=== PATIENT | male | born 1940 | race Caucasian/White ===

== ENCOUNTER 2016-10-22 02:03 | Inpatient (IN) | payer OTHER ==
[~2016-10-22] VITALS: Ht 165.1 cm; Wt 70.2 kg
[2016-10-22 03:30] VITALS: BP 181/96; PULSE 94; RESP 19
[2016-10-22] MEDS ORDERED: ACET325T45 PO (04:00)
[2016-10-22] MEDS ORDERED: IBUP200C11 PO (04:00)
[2016-10-22 04:06] VITALS: Ht 165.1 cm; Wt 70.2 kg
[2016-10-22] MEDS ORDERED: ONDANSETRON 4 MG INJ IV PRN (05:00)
[2016-10-22] MEDS: morphine 4 MG/ML VIAL IV PRN ×2 (05:07→12:39)
[2016-10-22 05:52] LABS: BASOPHIL # 0.1 10^3/ul (0.0-0.1); BASOPHILS % 0.8 % (0.0-2.0); EOSINOPHILS # 0.3 10^3/ul (0.0-0.5); EOSINOPHILS % 3.9 % (0.0-7.0); HEMATOCRIT 32.1 % (42.0-52.0); HEMOGLOBIN 10.8 g/dl (14.0-18.0); LYMPHOCYTES # 2.1 10^3/ul (0.8-2.9); LYMPHOCYTES % 24.2 % (15.0-51.0); MEAN CORPUSCULAR HGB CONC 33.6 g/dl (32.0-37.0); MEAN CORPUSCULAR VOLUME 92.2 fl (82.0-101.0); MEAN PLATELET VOLUME 10.4 fl (7.4-10.4); MONOCYTE # 0.9 10^3/ul (0.3-0.9); MONOCYTES % 10.8 % (0.0-11.0); NEUTROPHILS % 57.4 % (39.0-77.0); NUCLEATED RED BLOOD CELLS # 0.1 10^3/ul (0.0-0.0); NUCLEATED RED BLOOD CELLS% 0.6 /100WBC (0.0-0.0); PLATELET COUNT 222 10^3/UL (140-415); RED BLOOD COUNT 3.48 10^6/ul (4.70-6.10); RED CELL DISTRIBUTION WIDTH 14.2 % (11.5-14.5); WHITE BLOOD COUNT 8.5 10^3/ul (4.8-10.8)
[2016-10-22] MEDS ORDERED: hydrALAzine 20 MG INJ IV PRN (06:00)
[2016-10-22 06:03] LABS: ALBUMIN 3.1 g/dl (3.3-4.9); ALBUMIN/GLOBULIN RATIO 0.88; BILIRUBIN,INDIRECT 1.3 mg/dl (0-1.1); BILIRUBIN,TOTAL 1.3 mg/dl (0.2-1.3); CALCIUM 8.6 mg/dl (8.4-10.2); CREATININE 0.9 mg/dl (0.61-1.24); POTASSIUM 3.2 mmol/L (3.5-5.1); TOTAL PROTEIN 6.6 g/dl (6.1-8.1)
--- NOTE | 2016-10-22 06:10 | HP ---
Date/Time of Note Date/Time of Note DATE: 10/22/16 TIME: 06:01 Assessment/Plan VTE Prophylaxis VTE Prophylaxis Intervention: SCD's Lines/Catheters IV Catheter Type (from Nrsg): Saline Lock Assessment/Plan Assessment/Plan 1. Left femur fracture, status post fall -Pain management -Orthopedic consult -Physical therapy when cleared by Ortho 2. Elevated blood pressure -No history of hypertension. This is probably pain induced. will manage his pain and start antihypertensives as needed HPI/ROS Admit Date/Time Admit Date/Time Oct 22, 2016 at 03:24 Hx of Present Illness This is a 76-year-old male with no known past medical history who initially presented at [facility] complaining of left hip pain status post fall. He fell out of the bed 4 days ago during sleep and was found on the floor by his son. He has bruising over the left thigh, and a well-healed lesion over the left elbow and the right knee. X-ray at [facility] showed fracture of the head of the left femur. Patient was transferred to [facility] because of insurance reasons. Patient stated that he is still having pain in the left hip area and unable to bear weight as a result of that. . PMH/Family/Social Past Medical History Medical History: no pertinent history Past Surgical History Past Surgical Hx: no surgical history Social History Alcohol Use: none Smoking Status: Never smoker Drug Use: none Exam/Review of Systems Vital Signs Vitals Vital Signs Date Time Temp Pulse Resp B/P Pulse Ox O2 Delivery O2 Flow Rate FiO2 10/22/16 03:30 98.4 94 19 181/96 92 Room Air Exam Constitutional: alert, oriented, well developed Head: atraumatic, normocephalic Eyes: EOMI, PERRL Neck: non-tender, supple Respiratory: clear to auscultation, normal air movement Cardiovascular: nl pulses, regular rate and rhythm Gastrointestinal: non-tender, soft Extremities: other (Left hip pain, left thigh bruising and tenderness. Well- healed lesion over the left elbow and the right knee) Labs Result Diagram: 10/22/16 0456 Medications Medications Current Medications Morphine Sulfate (morphine) 3 mg Q4H PRN IV PAIN Last administered on t 05:07; Admin Dose 3 MG; Start 10/22/16 at 05:00 Ondansetron HCl (Zofran Inj) 4 mg Q6H PRN IV NAUSEA AND/OR VOMITING; Start at 05:00 Acetaminophen (Tylenol Tab) 650 mg Q6H PRN PO PAIN AND OR ELEVATED TEMP; Start 10/22/16 at 05:00 Amlodipine Besylate (Norvasc) 5 mg DAILY PO ; Start 10/22/16 at 09:00 Hydralazine HCl (Apresoline) 10 mg Q4H PRN IV SBP > 160; Start 10/22/16 at 06: 00 ANNIE SAENZ MD Oct 22, 2016 06:10
[2016-10-22 06:20] VITALS: BP 167/85
[2016-10-22] MEDS: AMLODIPINE 5 MG TAB PO SCH (09:00)
[2016-10-22 12:11] VITALS: BP 132/61; PULSE 93; RESP 20
[2016-10-22] MEDS ORDERED: POTASSIUM CHLORIDE (SR) 20 MEQ TAB PO STA (13:20)
--- NOTE | 2016-10-22 14:15 | QN ---
Documentation Comment Left message to Dr. García cell phone regarding consult as well as called office and made aware of the consult. Pending eval. Case discussed with . ROSANNA LOJA NP Oct 22, 2016 14:15
--- NOTE | 2016-10-22 14:50 | RADRPT ---
PROCEDURE: XR Right Hip. CLINICAL INDICATION: Trauma due to a fall. Right hip pain. TECHNIQUE: Single frontal view. COMPARISON: No prior studies are available for comparison. FINDINGS: There is no fracture or dislocation. The soft tissues are normal. Articular surfaces are intact. There is no lytic or blastic lesion. There is no radiopaque foreign body. IMPRESSION: 1. Normal image of the right hip. 2. This is a limited study as only a single view was obtained. RPTAT: QQ .Bismark Valdes MD, MD Date Time Electronically viewed and signed by .Bismark Valdes MD, on 10/22/2016 14:50 .R/
--- NOTE | 2016-10-22 14:51 | RADRPT ---
PROCEDURE: XR Right Shoulder. CLINICAL INDICATION: Trauma due to a fall. Right shoulder pain. TECHNIQUE: 3 views. Frontal internal rotation and frontal external rotation. Scapular Y-view. COMPARISON: No prior study is available for comparison. FINDINGS: There is no fracture or dislocation. The soft tissues are normal. Articular surfaces are intact. There is no lytic or blastic lesion. There is no radiopaque foreign body. IMPRESSION: 1. Normal images of the right shoulder. RPTAT: QQ .Bismark Valdes MD, MD Date Time Electronically viewed and signed by .Bismark Valdes MD, on 10/22/2016 14:50 .R/
[2016-10-22 19:34] VITALS: BP 138/70; RESP 22
[2016-10-23 02:00] VITALS: BP 127/79; RESP 22
--- NOTE | 2016-10-23 03:38 | CONS ---
DATE OF ADMISSION: 10/22/2016 DATE OF CONSULTATION: 10/22/2016 HISTORY OF PRESENT ILLNESS: Patient is a 76-year-old male, who has been in good health, who was transferred in on 22 October 2016 from [facility] because of the insurance arrangement. According to the family members, he fell out of his bed about 4 days ago, developing painful limit of motion involving his left hip. He was taken to [facility], and evaluation at the [facility] revealed the presence of fracture involving his left hip. PAST MEDICAL HISTORY: He has been relatively in good health. PHYSICAL EXAMINATION: My examination revealed a 76-year-old male with painful swelling and tenderness around the left hip. There was a shortening and abnormal external rotation of the left lower extremity. There are no signs of neurovascular compromise involving the left lower extremity. Range of motion of the left hip was not tested because of the obvious pain. RADIOLOGY: X-rays of the left hip revealed an intertrochanteric and subtrochanteric fracture of the left hip. DIAGNOSTIC IMPRESSION: Intertrochanteric and subtrochanteric fracture of the left hip. TREATMENT PLAN: To surgery for open reduction and internal fixation as soon as he can be medically cleared for surgery. Dictated By: In Sera García MD /marya/ashley /Document#: [id number]
[2016-10-23 05:47] LABS: BASOPHIL # 0.1 10^3/ul (0.0-0.1); BASOPHILS % 0.6 % (0.0-2.0); EOSINOPHILS # 0.2 10^3/ul (0.0-0.5); EOSINOPHILS % 2.4 % (0.0-7.0); HEMATOCRIT 31.2 % (42.0-52.0); HEMOGLOBIN 10.4 g/dl (14.0-18.0); LYMPHOCYTES # 1.4 10^3/ul (0.8-2.9); LYMPHOCYTES % 16.1 % (15.0-51.0); MEAN CORPUSCULAR HEMOGLOBIN 30.7 pg (29.0-33.0); MEAN CORPUSCULAR HGB CONC 33.3 g/dl (32.0-37.0); MEAN PLATELET VOLUME 10.1 fl (7.4-10.4); MONOCYTE # 1.1 10^3/ul (0.3-0.9); MONOCYTES % 12.5 % (0.0-11.0); NEUTROPHILS % 65.6 % (39.0-77.0); NUCLEATED RED BLOOD CELLS # 0.1 10^3/ul (0.0-0.0); NUCLEATED RED BLOOD CELLS% 0.6 /100WBC (0.0-0.0); PLATELET COUNT 249 10^3/UL (140-415); RED BLOOD COUNT 3.39 10^6/ul (4.70-6.10); RED CELL DISTRIBUTION WIDTH 14.1 % (11.5-14.5); WHITE BLOOD COUNT 8.9 10^3/ul (4.8-10.8)
[2016-10-23] MEDS: morphine 4 MG/ML VIAL IV PRN ×5 (05:58→21:12)
[2016-10-23 06:24] LABS: CALCIUM 8.6 mg/dl (8.4-10.2); CHOL/HDL RATIO 3.9 RATIO; CREATININE 0.94 mg/dl (0.61-1.24); POTASSIUM 4.1 mmol/L (3.5-5.1)
[2016-10-23 07:42] LABS: THYROID STIMULATING HORMONE 1.61 MIU/L (0.465-4.680)
[2016-10-23 08:00] VITALS: BP 134/95; RESP 18
[2016-10-23] MEDS: AMLODIPINE 5 MG TAB PO SCH (08:38)
--- NOTE | 2016-10-23 11:33 | PN ---
Date/Time of Note Date/Time of Note DATE: 10/23/16 TIME: 11:23 Assessment/Plan VTE Prophylaxis VTE Prophylaxis Intervention: SCD's Lines/Catheters IV Catheter Type (from Nrsg): Saline Lock Assessment/Plan Chief Complaint/Hosp Course 1.Mechanical fall with left hip fracture -Ortho eval appreciated-Recommended ORIF -Continue pain control and immobilization of affected part 2.Anemia,likley chronic. -HH stable -Monitor 3.HTN,Likely pain induced. Resolved. -Monitor. 4.Hypokalemia.Resolved -Monitor. PLAN: For ORIF left hip. F/u ortho recs postoperatively Given patient's medical condition, patient is at intermediate risk for any untoward medical events for surgery. However, benefit likely outweigh risks and recommended to have surgical intervention. Will also obtain a 12 lead EKG and chest Xray prior to surgical intervention. Case discussed with Problems: Subjective 24 Hr Interval Summary Free Text/Dictation Having pain on left hip. Had ortho eval. Recommended ORIF Exam/Review of Systems Vital Signs Vitals Vital Signs Date Time Temp Pulse Resp B/P Pulse Ox O2 Delivery O2 Flow Rate FiO2 10/23/16 08:00 98.8 77 18 134/95 98 10/22/16 12:11 Room Air Intake and Output 10/22/16 10/22/16 10/23/16 15:00 23:00 07:00 Intake Total 500 ml 100 ml Output Total 400 ml 100 ml Balance 100 ml 0 ml Results Result Diagram: 10/23/16 0514 10/23/16 0515 Results 24 hrs Laboratory Tests Test 10/23/16 05:14 10/23/16 05:15 White Blood Count 8.9 Red Blood Count 3.39 L Hemoglobin 10.4 L Hematocrit 31.2 L Mean Corpuscular Volume 92.0 Mean Corpuscular Hemoglobin 30.7 Mean Corpuscular Hemoglobin Concent 33.3 Red Cell Distribution Width 14.1 Platelet Count 249 Mean Platelet Volume 10.1 Neutrophils % 65.6 Lymphocytes % 16.1 Monocytes % 12.5 H Eosinophils % 2.4 Basophils % 0.6 Nucleated Red Blood Cells % 0.6 H Neutrophils # (Manual) 5.9 Lymphocytes # 1.4 Monocytes # 1.1 H Eosinophils # 0.2 Basophils # 0.1 Nucleated Red Blood Cells # 0.1 H Hemoglobin A1c 5.4 Sodium Level 137 Potassium Level 4.1 Chloride Level 103 Carbon Dioxide Level 27 Anion Gap 11 Blood Urea Nitrogen 21 H Creatinine 0.94 Glucose Level 98 Calcium Level 8.6 Magnesium Level 2.0 Triglycerides Level 112 Cholesterol Level 142 LDL Cholesterol, Calculated 84 HDL Cholesterol 36 Cholesterol/HDL Ratio 3.9 Thyroid Stimulating Hormone (TSH) 1.610 Medications Medications Current Medications Morphine Sulfate (morphine) 3 mg Q4H PRN IV PAIN Last administered on 10/23/16 09:15; Admin Dose 3 MG; Start 10/22/16 at 05:00 Ondansetron HCl (Zofran Inj) 4 mg Q6H PRN IV NAUSEA AND/OR VOMITING; Start at 05:00 Acetaminophen (Tylenol Tab) 650 mg Q6H PRN PO PAIN AND OR ELEVATED TEMP; Start 10/22/16 at 05:00 Amlodipine Besylate (Norvasc) 5 mg DAILY PO Last administered on 10/23/16 08:38 ; Admin Dose 5 MG; Start 10/22/16 at 09:00 Hydralazine HCl (Apresoline) 10 mg Q4H PRN IV SBP > 160 Last administered on 06:11; Admin Dose 10 MG; Start 10/22/16 at 06:00 ROSANNA LOJA NP Oct 23, 2016 11:33
[2016-10-23] MEDS: SOD CHLORIDE 0.9% 1,000 ML IV SCH (12:05)
--- NOTE | 2016-10-23 12:37 | RADRPT ---
PROCEDURE: XR Chest. CLINICAL INDICATION: Preoperative. Left hip fracture. TECHNIQUE: Single frontal view. COMPARISON: None. FINDINGS: There is mild atelectasis at the lung bases. The lungs are otherwise clear. The heart size is normal. There is calcification in the aorta consistent with atherosclerosis. There is no pleural effusion. There is no pneumothorax. IMPRESSION: 1. Mild atelectasis at the lung bases. 2. Atherosclerosis. 3. Otherwise normal chest x-ray. RPTAT: QQ .Bismark Valdes MD, MD Date Time Electronically viewed and signed by .Bismark Valdes MD, on 10/23/2016 12:37 .R/
[2016-10-23 14:00] VITALS: BP 137/76; RESP 18
--- NOTE | 2016-10-23 15:39 | RADRPT ---
Vent Rate: 83 bpm RR Interval: 0 msec OH Interval: 146 msec QRS Duration: 88 msec QT Interval: 372 msec QTC Interval: 437 msec P-R-T [place]: 55 - 21 - 47 degrees Normal sinus rhythm Normal ECG Electronically Signed By: Dmitriy Galan [id number]
[2016-10-23 19:43] VITALS: BP 125/65; PULSE 92; RESP 18
[2016-10-24] VITALS (32 sets, daily range): BP systolic 98–161; BP diastolic 58–86; PULSE 78–100; RESP 14–33
[2016-10-24 05:24] LABS: BASOPHILS % 0.3 % (0.0-2.0); EOSINOPHILS # 0.2 10^3/ul (0.0-0.5); EOSINOPHILS % 2.6 % (0.0-7.0); HEMATOCRIT 29.9 % (42.0-52.0); HEMOGLOBIN 9.9 g/dl (14.0-18.0); LYMPHOCYTES # 1.6 10^3/ul (0.8-2.9); LYMPHOCYTES % 18.8 % (15.0-51.0); MEAN CORPUSCULAR HEMOGLOBIN 30.4 pg (29.0-33.0); MEAN CORPUSCULAR HGB CONC 33.1 g/dl (32.0-37.0); MEAN CORPUSCULAR VOLUME 91.7 fl (82.0-101.0); MEAN PLATELET VOLUME 9.8 fl (7.4-10.4); MONOCYTE # 1.2 10^3/ul (0.3-0.9); MONOCYTES % 13.2 % (0.0-11.0); NEUTROPHILS % 61.6 % (39.0-77.0); NUCLEATED RED BLOOD CELLS% 0.3 /100WBC (0.0-0.0); PLATELET COUNT 263 10^3/UL (140-415); RED BLOOD COUNT 3.26 10^6/ul (4.70-6.10); RED CELL DISTRIBUTION WIDTH 14.2 % (11.5-14.5); WHITE BLOOD COUNT 8.7 10^3/ul (4.8-10.8)
[2016-10-24 05:43] LABS: CREATININE 0.89 mg/dl (0.61-1.24); POTASSIUM 3.6 mmol/L (3.5-5.1)
[2016-10-24] MEDS ORDERED: EPHEDrine SULFATE 50 MG/5 ML SYG ONE (07:00)
[2016-10-24] MEDS ORDERED: ROCURONIUM 50 MG INJ ONE (07:00)
[2016-10-24] MEDS ORDERED: CEFAZOLIN 1 GM INJ ONE (07:00)
[2016-10-24] MEDS: AMLODIPINE 5 MG TAB PO SCH (07:49)
[2016-10-24] MEDS: SOD CHLORIDE 0.9% 1,000 ML IV SCH ×2 (08:06→18:35)
--- NOTE | 2016-10-24 09:18 | PN ---
Date/Time of Note Date/Time of Note DATE: 10/24/16 TIME: 09:16 Assessment/Plan VTE Prophylaxis VTE Prophylaxis Intervention: SCD's Lines/Catheters IV Catheter Type (from Nrsg): Peripheral IV Assessment/Plan Problems: (1) Anemia Status: Chronic Comment: Will perform basic evaluation of this. At this time this is not a contraindication to proceeding with surgery. Qualifiers: Anemia type: unspecified type Qualified Code: D64.9 - Anemia, unspecified type (2) Fracture, subtrochanteric, left femur, closed Status: Acute Comment: As per orthopedic consultation recommendation for ORIF. No evidence of osteoporosis. Proceed with surgery as medically clear for the procedure. Debilitation after successful surgery Qualifiers: Encounter type: initial encounter Fracture alignment: nondisplaced Qualified Code: S72.25XA - Closed nondisplaced subtrochanteric fracture of left femur, initial encounter Subjective 24 Hr Interval Summary Free Text/Dictation Cus-Qnanjuh-[id number] male lying in bed. Exam/Review of Systems Vital Signs Vitals Vital Signs Date Time Temp Pulse Resp B/P Pulse Ox O2 Delivery O2 Flow Rate FiO2 10/24/16 07:45 98.2 68 18 138/68 97 10/23/16 19:43 Room Air Intake and Output 10/23/16 10/23/16 10/24/16 15:00 23:00 07:00 Intake Total 780 ml 1050 ml Output Total 600 ml 1200 ml Balance 180 ml -150 ml Exam Constitutional: alert Head: atraumatic, normocephalic Neck: non-tender, supple Respiratory: clear to auscultation, normal air movement Cardiovascular: nl pulses, regular rate and rhythm Gastrointestinal: nl liver, spleen, non-tender, soft Results Result Diagram: 10/24/16 0436 10/24/16 0436 Results 24 hrs Laboratory Tests Test 10/24/16 04:36 White Blood Count 8.7 Red Blood Count 3.26 L Hemoglobin 9.9 L Hematocrit 29.9 L Mean Corpuscular Volume 91.7 Mean Corpuscular Hemoglobin 30.4 Mean Corpuscular Hemoglobin Concent 33.1 Red Cell Distribution Width 14.2 Platelet Count 263 Mean Platelet Volume 9.8 Neutrophils % 61.6 Lymphocytes % 18.8 Monocytes % 13.2 H Eosinophils % 2.6 Basophils % 0.3 Nucleated Red Blood Cells % 0.3 H Neutrophils # (Manual) 5.4 Lymphocytes # 1.6 Monocytes # 1.2 H Eosinophils # 0.2 Basophils # 0.0 Nucleated Red Blood Cells # 0.0 Sodium Level 132 L Potassium Level 3.6 Chloride Level 101 Carbon Dioxide Level 27 Anion Gap 8 Blood Urea Nitrogen 19 Creatinine 0.89 Glucose Level 103 Calcium Level 8.0 L Medications Medications Current Medications Morphine Sulfate (morphine) 3 mg Q4H PRN IV PAIN Last administered on 10/23/16 21:12; Admin Dose 3 MG; Start 10/22/16 at 05:00 Ondansetron HCl (Zofran Inj) 4 mg Q6H PRN IV NAUSEA AND/OR VOMITING; Start at 05:00 Acetaminophen (Tylenol Tab) 650 mg Q6H PRN PO PAIN AND OR ELEVATED TEMP; Start 10/22/16 at 05:00 Amlodipine Besylate (Norvasc) 5 mg DAILY PO Last administered on 10/24/16 07:49 ; Admin Dose 5 MG; Start 10/22/16 at 09:00 Hydralazine HCl 10 mg 10 mg Q4H PRN IV SBP > 160 Last administered on 06:11; Admin Dose 10 MG; Start 10/22/16 at 06:00 Sodium Chloride (NS) 1,000 ml @ 50 mls/hr Q20H IV Last administered on 08:06; Admin Dose 50 MLS/HR; Start 10/23/16 at 12:00 BRENDAN HAYS MD Oct 24, 2016 09:18
[2016-10-24 09:39] LABS: IRON 21 ug/dl (35-150)
[2016-10-24 09:50] LABS: TOTAL IRON BINDING CAPACITY 275 ug/dl (241-421)
[2016-10-24] MEDS: morphine 4 MG/ML VIAL IV PRN (11:55)
[2016-10-24] MEDS ORDERED: LIDOCAINE 100 MG SYRINGE ONE (14:42)
[2016-10-24] MEDS ORDERED: ETOMIDATE 20 MG INJ ONE (14:42)
[2016-10-24] MEDS ORDERED: FENTAnyl 50 MCG/ML VIAL ONE (14:42)
[2016-10-24] MEDS ORDERED: MIDAZOLAM 1 MG/ML 2 ML INJ ONE (14:42)
--- NOTE | 2016-10-24 14:42 | HPN ---
Date/Time of Note Date/Time of Note DATE: 10/24/16 TIME: 14:41 Interval H&P Admission Note Pt. seen H&P reviewed: No system changes PEBBLES REDDY MD Oct 24, 2016 14:42
[2016-10-24] MEDS ORDERED: POLYMYXIN/BACITRACIN 1L IRRIG IRR ONE (16:02)
[2016-10-24] MEDS ORDERED: POLYMYXIN/BACITRACIN 1L IRRIG ONE (16:21)
[2016-10-24] MEDS ORDERED: DIPHENHYDRAMINE 50 MG INJ IV PRN (16:30)
[2016-10-24] MEDS ORDERED: hydrALAzine 20 MG INJ IV PRN (16:30)
[2016-10-24] MEDS ORDERED: EPHEDrine SULFATE 50 MG/5 ML SYG IV PRN (16:30)
[2016-10-24] MEDS ORDERED: FENTAnyl 50 MCG/ML VIAL IV PRN ×3 (16:30)
[2016-10-24] MEDS ORDERED: KETOROLAC 30 MG INJ IV PRN (16:30)
[2016-10-24] MEDS ORDERED: LABETALOL HCL 20MG INJ IV PRN (16:30)
[2016-10-24] MEDS ORDERED: ONDANSETRON 4 MG INJ IV PRN (16:30)
[2016-10-24] MEDS ORDERED: MEPERIDINE 25 MG INJ IV PRN (16:30)
--- NOTE | 2016-10-24 18:31 | SIPON ---
Date/Time of Note Date/Time of Note DATE: 10/24/16 TIME: 18:16 Operative Report Preoperative Diagnosis intertrchanteric fracture of Lt. hip Postoperative Diagnosis same Operation/Procedure Performed O.R.I.F. of Lt.hip Surgeon: PEBBLES REDDY MD Anesthesia Type: general Estimated Blood Loss: 50 - 100 ml's Transfusion Required: no Specimen: none Grafts/Implants: none Grafts/Implants gamma nail Complications: no PEBBLES REDDY MD Oct 24, 2016 18:28
[2016-10-24] MEDS ORDERED: NACL 0.9% 3 ML SYG IV SCH (19:00)
--- NOTE | 2016-10-24 19:55 | RADRPT ---
PROCEDURE: XR Pelvis. CLINICAL INDICATION: Postoperative evaluation left hip TECHNIQUE: Single AP supine view of the pelvis. COMPARISON: No prior studies are available for comparison. FINDINGS: Intramedullary eric and helical screw through the comminuted intertrochanteric fracture are in good r adiographic alignment. The fracture fragments are in satisfactory alignment, the lesser trochanteric fracture separate from the remaining femur. The osseous mineralization is normal. The sacroiliac joints and pubic symphysis are normal. Postoperative gas and skin harper overlying t he left hip are noted RPTAT:HJJR IMPRESSION: Changes of recent open reduction internal fixation with intramedullary eric and screw placement throu gh the intertrochanteric left proximal femoral fracture, the fragments in satisfactory radiographic alignment. Physician Katelyn Date Time Electronically viewed and signed by Physician Katelyn on 10/24/2016 19:55 /
--- NOTE | 2016-10-24 20:01 | RADRPT ---
PROCEDURE: Intraoperative fluoroscopic assistance CLINICAL INDICATION: Left hip fracture TECHNIQUE: Fluoroscopic time: 252.9 seconds Supervising physician: Dr. García Anatomic region: Left hip Images obtained: 2 COMPARISON: None available FINDINGS: Intramedullary eric and helical screw are visualized through an intertrochanteric fracture, the hardw are and a fragments in satisfactory alignment. RPTAT:HJJR IMPRESSION: Intraoperative fluoroscopic assistance for open reduction internal fixation of a left intertrochante yvonne femoral fracture. Physician Katelyn Date Time Electronically viewed and signed by Physician Katelyn on 10/24/2016 20:01 /
[2016-10-24] MEDS ORDERED: ENOXAPARIN 40 MG/0.4 ML SYG SC SCH (21:00)
[2016-10-24] MEDS: morphine 2 MG INJ IV PRN ×2 (21:06→23:15)
[2016-10-24] MEDS: CEFAZOLIN 1 GM/50 ML (PMX) 50 ML IVPB SCH (22:17)
--- NOTE | 2016-10-24 22:22 | OPR ---
DATE OF OPERATION: 10/24/2016 PREOPERATIVE DIAGNOSIS: Intertrochanteric fracture of the left hip. POSTOPERATIVE DIAGNOSIS: Intertrochanteric fracture of the left hip. ANESTHESIA: General anesthesia. SURGEON: Dany García MD OPERATION PERFORMED: Open reduction and internal fixation of the intertrochanteric fracture of the left hip utilizing gamma nail system. PROCEDURE AND FINDINGS: Under general anesthesia, the patient was placed in supine position on the fracture table. Utilizing fracture table and under fluoroscopic monitoring, preliminary manipulator tip reduction of the left hip was carried out until an acceptable alignment could be achieved. The usual prep and drape was done exposing the left hip and left side. The intertrochanteric area of the left hip was approached through the small lateral longitudinal incision. After opening fascia mirella, tip of the greater trochanter was identified, and through this area into the intramedullary canal was entered using a guide pin. After confirming the satisfactory position of the guide pin in the proximal femur, opening was enlarged with the cannulated drill and the reamer guide was introduced into the intramedullary canal of the femur. After proper adjustment, measurement was carried out and it was my impression that the 38 cm long, 10 mm wide intramedullary eric with the 125 degrees angle was the proper choice. After reaming up to 11.5 mm, selected intramedullary eric was inserted. A K-wire as a guide for the lag screw was properly positioned and the measurements revealed 100 mm lag screw will be the proper choice. After reaming along the K-wire selected the lag screw in the size of 100 mm was inserted. At this time using extended guide 2 distal locking screw was inserted. After confirming satisfactory alignment of the fracture and proper position of the fixation device, all the insertion guides were removed, and after irrigation and hemostasis, closure of the incision was carried out using 0 Vicryl for fascia and 2-0 Vicryl for subcutaneous tissues. Final skin closure was carried out with skin harper. Usual sterile pressure dressings were applied. The patient tolerated the entire procedure very well and was sent to the recovery room in excellent condition. Dictated By: aDny García MD /marya/vasquez /Document#: [id number]
[2016-10-24] MEDS: ACETAMINOPHEN 325 MG TAB PO PRN (23:17)
[2016-10-25 00:11] VITALS: BP 136/67
[2016-10-25] MEDS: morphine 2 MG INJ IV PRN ×5 (01:16→21:15)
[2016-10-25 01:30] VITALS: BP 140/74; PULSE 89; RESP 18
[2016-10-25 01:40] LABS: ADD UMIC NO; UR ASCORBIC ACID NEGATIVE (NEGATIVE); UR BILIRUBIN (Dip) NEGATIVE (NEGATIVE); UR BLOOD (Dip) NEGATIVE (NEGATIVE); UR CLARITY SLIGHTLY CLOUDY (CLEAR); UR COLOR AMBER (YELLOW); UR GLUCOSE (Dip) NEGATIVE (NEGATIVE); UR KETONES (Dip) NEGATIVE (NEGATIVE); UR LEUKOCYTE ESTERASE (Dip) NEGATIVE Leu/ul (NEGATIVE); UR NITRITE (Dip) NEGATIVE (NEGATIVE); UR RBC 1 /HPF (0-5); UR TOTAL PROTEIN (Dip) NEGATIVE (NEGATIVE); UR UROBILINOGEN (Dip) 1+ mg/dL (NEGATIVE)
[2016-10-25] MEDS: SOD CHLORIDE 0.9% 1,000 ML IV SCH ×3 (02:03→15:03)
[2016-10-25] MEDS: CEFAZOLIN 1 GM/50 ML (PMX) 50 ML IVPB SCH ×2 (03:34→11:46)
[2016-10-25 06:58] LABS: BASOPHILS % 0.2 % (0.0-2.0); EOSINOPHILS # 0.1 10^3/ul (0.0-0.5); EOSINOPHILS % 1.3 % (0.0-7.0); HEMATOCRIT 28.8 % (42.0-52.0); HEMOGLOBIN 9.2 g/dl (14.0-18.0); LYMPHOCYTES % 15.3 % (15.0-51.0); MEAN CORPUSCULAR HGB CONC 31.9 g/dl (32.0-37.0); MEAN CORPUSCULAR VOLUME 93.8 fl (82.0-101.0); MEAN PLATELET VOLUME 10.2 fl (7.4-10.4); MONOCYTE # 0.8 10^3/ul (0.3-0.9); MONOCYTES % 12.7 % (0.0-11.0); NEUTROPHILS % 66.3 % (39.0-77.0); PLATELET COUNT 266 10^3/UL (140-415); RED BLOOD COUNT 3.07 10^6/ul (4.70-6.10); RED CELL DISTRIBUTION WIDTH 14.3 % (11.5-14.5); WHITE BLOOD COUNT 6.2 10^3/ul (4.8-10.8)
[2016-10-25 07:17] LABS: ALBUMIN 2.7 g/dl (3.3-4.9); ALBUMIN/GLOBULIN RATIO 0.87; BILIRUBIN,INDIRECT 0.8 mg/dl (0-1.1); BILIRUBIN,TOTAL 0.8 mg/dl (0.2-1.3); CALCIUM 7.7 mg/dl (8.4-10.2); CREATININE 0.9 mg/dl (0.61-1.24); MAGNESIUM 1.9 mg/dl (1.7-2.5); PHOSPHORUS 3.2 mg/dl (2.5-4.9); POTASSIUM 3.7 mmol/L (3.5-5.1); TOTAL PROTEIN 5.8 g/dl (6.1-8.1)
[2016-10-25 08:30] VITALS: BP 163/77; RESP 19
[2016-10-25] MEDS: AMLODIPINE 5 MG TAB PO SCH (08:47)
[2016-10-25] MEDS: HYDROCODONE/APAP (5/325) TAB PO PRN ×2 (09:03→15:44)
--- NOTE | 2016-10-25 09:25 | PN ---
Date/Time of Note Date/Time of Note DATE: 10/25/16 TIME: 09:21 Assessment/Plan VTE Prophylaxis VTE Prophylaxis Intervention: SCD's Lines/Catheters IV Catheter Type (from [facility]): Peripheral IV Urinary Cath still in place: No Assessment/Plan Problems: (1) Status post-operative repair of hip fracture Status: Acute Comment: Immediately postoperatively he developed fevers. This may been reaction as some of the agents used in the surgery. However urine cultures and blood cultures are pending. Continue with postoperative care with careful observation. (2) Fracture, subtrochanteric, left femur, closed Status: Acute Comment: This is now been surgically repaired. 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 Given that he also has hypertension use alpha blockade therapy doxazosin as are therapeutic here. (4) Iron deficiency anemia Status: Chronic Comment: He will need to be treated with IV iron therapy. Ultimately he will need outpatient GI workup. Will try and find out who his primary care physician is and share the information so that he can complete the loop of the evaluation Qualifiers: Iron deficiency anemia type: unspecified iron deficiency Qualified Code: D50.9 - Iron deficiency anemia, unspecified iron deficiency anemia type Subjective 24 Hr Interval Summary Free Text/Dictation Gentleman appears somewhat uncomfortable today postoperative. Exam/Review of Systems Vital Signs Vitals Vital Signs Date Time Temp Pulse Resp B/P Pulse Ox O2 Delivery O2 Flow Rate FiO2 10/25/16 01:53 99.8 99 10/25/16 01:30 89 18 140/74 Nasal Cannula 3.0 Intake and Output 10/24/16 10/24/16 10/25/16 15:00 23:00 07:00 Intake Total 450 ml 1050 ml 1100 ml Output Total 850 ml 1000 ml Balance 450 ml 200 ml 100 ml Exam Constitutional: alert Neck: non-tender, supple Respiratory: clear to auscultation, normal air movement Cardiovascular: nl pulses, regular rate and rhythm Gastrointestinal: nl liver, spleen, non-tender, soft Results Result Diagram: 10/25/16 0601 10/25/16 0601 Results 24 hrs Laboratory Tests Test 10/25/16 01:00 10/25/16 06:01 Urine Color TRUDY Urine Clarity SLIGHTLY CLOUDY A Urine pH 5.0 Urine Specific [place] 1.020 Urine Ketones NEGATIVE Urine Nitrite NEGATIVE Urine Bilirubin NEGATIVE Urine Urobilinogen 1+ H Urine Leukocyte Esterase NEGATIVE Urine Microscopic RBC 1 Urine Microscopic WBC 1 Urine Hemoglobin NEGATIVE Urine Glucose NEGATIVE Urine Total Protein NEGATIVE White Blood Count 6.2 # Red Blood Count 3.07 L Hemoglobin 9.2 L Hematocrit 28.8 L Mean Corpuscular Volume 93.8 Mean Corpuscular Hemoglobin 30.0 Mean Corpuscular Hemoglobin Concent 31.9 L Red Cell Distribution Width 14.3 Platelet Count 266 Mean Platelet Volume 10.2 Neutrophils % 66.3 Lymphocytes % 15.3 Monocytes % 12.7 H Eosinophils % 1.3 Basophils % 0.2 Nucleated Red Blood Cells % 0.0 Neutrophils # (Manual) 4.1 Lymphocytes # 1.0 Monocytes # 0.8 Eosinophils # 0.1 Basophils # 0.0 Nucleated Red Blood Cells # 0.0 Sodium Level 133 L Potassium Level 3.7 Chloride Level 102 Carbon Dioxide Level 25 Anion Gap 10 Blood Urea Nitrogen 15 Creatinine 0.90 Glucose Level 123 Calcium Level 7.7 L Phosphorus Level 3.2 Magnesium Level 1.9 Total Bilirubin 0.8 Direct Bilirubin 0.00 Indirect Bilirubin 0.8 Aspartate Amino Transf (AST/SGOT) 39 Alanine Aminotransferase (ALT/SGPT) 48 Alkaline Phosphatase 69 Total Protein 5.8 L Albumin 2.7 L Globulin 3.10 Albumin/Globulin Ratio 0.87 Medications Medications Current Medications Morphine Sulfate (morphine) 3 mg Q4H PRN IV PAIN Last administered on 10/24/16 11:55; Admin Dose 3 MG; Start 10/22/16 at 05:00 Ondansetron HCl (Zofran Inj) 4 mg Q6H PRN IV NAUSEA AND/OR VOMITING; Start at 05:00 Acetaminophen (Tylenol Tab) 650 mg Q6H PRN PO PAIN AND OR ELEVATED TEMP Last administered on 10/24/16 23:17; Admin Dose 650 MG; Start 10/22/16 at 05:00 Amlodipine Besylate (Norvasc) 5 mg DAILY PO Last administered on 10/25/16 08:47 ; Admin Dose 5 MG; Start 10/22/16 at 09:00 Hydralazine HCl 10 mg 10 mg Q4H PRN IV SBP > 160 Last administered on 06:11; Admin Dose 10 MG; Start 10/22/16 at 06:00 Sodium Chloride 1,000 ml @ 50 mls/hr Q20H IV Last administered on 10/25/16 02: 03; Admin Dose 50 MLS/HR; Start 10/23/16 at 12:00 Sodium Chloride 1,000 ml @ 80 mls/hr [id number] IV ; Start 10/24/16 at 18:35 Cefazolin Sodium (Ancef 1 Gm/50 ml (Pmx)) 50 ml @ 100 mls/hr Q8H IVPB Last administered on 10/25/16 03:34; Admin Dose 100 MLS/HR; Start 10/24/16 at 19:00; Stop 10/25/16 at 11:29 Enoxaparin Sodium (Lovenox) 40 mg QHS SC ; Start 10/24/16 at 21:00; Status Future Hold Morphine Sulfate (morphine) 2 mg Q2H PRN IV pain Last administered on 10/25/16 04:49; Admin Dose 2 MG; Start 10/24/16 at 19:00 Acetaminophen/ Hydrocodone Bitart (Apex (5/325)) 1 tab Q3H PRN PO PAIN Last administered on 10/25/16 09:03; Admin Dose 1 TAB; Start 10/24/16 at 19:00 BRENDAN HAYS MD Oct 25, 2016 09:25
[2016-10-25] MEDS ORDERED: DOXAZOSIN 1 MG TAB PO ONE (10:00)
[2016-10-25] MEDS: SOD FERRIC GLUC COMPLX 125 MG in SOD CHLORIDE 0.9% 100 ML IVPB SCH (12:40)
[2016-10-25 13:43] VITALS: BP 151/70; RESP 19
[2016-10-25] MEDS: morphine 4 MG/ML VIAL IV PRN (17:31)
[2016-10-25 19:37] VITALS: BP 106/56; RESP 18
[2016-10-25] MEDS: DOXAZOSIN 2 MG TAB PO SCH (21:16)
[2016-10-26 01:42] VITALS: BP 131/61; RESP 18
[2016-10-26] MEDS: ACETAMINOPHEN 325 MG TAB PO PRN (02:49)
[2016-10-26] MEDS: morphine 2 MG INJ IV PRN (03:19)
[2016-10-26] MEDS: SOD CHLORIDE 0.9% 1,000 ML IV SCH ×2 (04:47→20:40)
[2016-10-26 05:09] LABS: BASOPHILS % 0.3 % (0.0-2.0); EOSINOPHILS # 0.1 10^3/ul (0.0-0.5); EOSINOPHILS % 1.6 % (0.0-7.0); HEMATOCRIT 24.8 % (42.0-52.0); HEMOGLOBIN 8.2 g/dl (14.0-18.0); LYMPHOCYTES # 0.8 10^3/ul (0.8-2.9); LYMPHOCYTES % 11.4 % (15.0-51.0); MEAN CORPUSCULAR HEMOGLOBIN 30.5 pg (29.0-33.0); MEAN CORPUSCULAR HGB CONC 33.1 g/dl (32.0-37.0); MEAN CORPUSCULAR VOLUME 92.2 fl (82.0-101.0); MEAN PLATELET VOLUME 9.6 fl (7.4-10.4); MONOCYTE # 0.7 10^3/ul (0.3-0.9); MONOCYTES % 10.3 % (0.0-11.0); NEUTROPHILS % 74.5 % (39.0-77.0); PLATELET COUNT 306 10^3/UL (140-415); RED BLOOD COUNT 2.69 10^6/ul (4.70-6.10); RED CELL DISTRIBUTION WIDTH 13.8 % (11.5-14.5)
[2016-10-26 05:44] LABS: ALBUMIN 2.5 g/dl (3.3-4.9); ALBUMIN/GLOBULIN RATIO 0.86; BILIRUBIN,INDIRECT 0.8 mg/dl (0-1.1); BILIRUBIN,TOTAL 0.8 mg/dl (0.2-1.3); CALCIUM 7.6 mg/dl (8.4-10.2); CREATININE 0.86 mg/dl (0.61-1.24); POTASSIUM 3.4 mmol/L (3.5-5.1); TOTAL PROTEIN 5.4 g/dl (6.1-8.1)
[2016-10-26 07:33] VITALS: BP 136/67; RESP 17
[2016-10-26] MEDS: AMLODIPINE 5 MG TAB PO SCH (08:56)
[2016-10-26] MEDS: morphine 4 MG/ML VIAL IV PRN ×2 (11:03→19:11)
[2016-10-26] MEDS: SOD FERRIC GLUC COMPLX 125 MG in SOD CHLORIDE 0.9% 100 ML IVPB SCH (11:54)
[2016-10-26] MEDS ORDERED: POTASSIUM CHLORIDE (SR) 20 MEQ TAB PO STA (11:56)
--- NOTE | 2016-10-26 12:03 | PN ---
Date/Time of Note Date/Time of Note DATE: 10/26/16 TIME: 11:58 Assessment/Plan VTE Prophylaxis VTE Prophylaxis Intervention: LMWH Lines/Catheters IV Catheter Type (from Nrs): Peripheral IV Urinary Cath still in place: No Assessment/Plan Assessment/Plan 1. Left IT fracture, s/p ORIF 10/24/2016, stable, follow up with ortho and PT 2. Acute on chronic anemia, on iv iron 3. Hypokalemia, KCL 4. DVT prophylaxis: lovenox Subjective 24 Hr Interval Summary Free Text/Dictation left hip pain Exam/Review of Systems Vital Signs Vitals Vital Signs Date Time Temp Pulse Resp B/P Pulse Ox O2 Delivery O2 Flow Rate FiO2 10/26/16 07:33 98.4 98 17 136/67 95 10/25/16 20:30 Nasal Cannula 3.0 Intake and Output 10/25/16 10/25/16 10/26/16 15:00 23:00 07:00 Intake Total 1160 ml 650 ml 680 ml Output Total 550 ml 900 ml Balance 1160 ml 100 ml -220 ml Exam Constitutional: alert, oriented, well developed Psych: nl mood/affect, no complaints Head: atraumatic, normocephalic Eyes: EOMI, PERRL, nl conjunctiva, nl lids ENMT: nl external ears & nose, nl lips & teeth, nl nasal mucosa & septum Neck: non-tender, supple Respiratory: clear to auscultation, normal air movement, No congested cough, No crackles/rales, No diminished breath sounds, No intercostal retraction, No labored breathing, No other, No respirations, No tactile fremitus, No wheezing Cardiovascular: nl pulses, regular rate and rhythm, No S3, No S4, No bruits, No diastolic murmur, No edema, No gallop, No irregular rhythm, No jugular venous distention (JVD), No murmurs/extra sounds, No other, No rub, No systolic murmur Gastrointestinal: nl liver, spleen, non-tender, soft Musculoskeletal: other (left hip surgery with edema) Extremities: normal pulses, other (left hip swelling, no active bleeding), No calf tenderness, No clubbing, No cyanosis, No palpable cord Neurological: SPECIAL PROCEDURE TECH II-XII intact Results Result Diagram: 10/26/1644410/26/16444 Results 24 hrs Laboratory Tests Test 10/26/16 04:45 White Blood Count 7.0 Red Blood Count 2.69 L Hemoglobin 8.2 L Hematocrit 24.8 L Mean Corpuscular Volume 92.2 Mean Corpuscular Hemoglobin 30.5 Mean Corpuscular Hemoglobin Concent 33.1 Red Cell Distribution Width 13.8 Platelet Count 306 Mean Platelet Volume 9.6 Neutrophils % 74.5 Lymphocytes % 11.4 L Monocytes % 10.3 Eosinophils % 1.6 Basophils % 0.3 Nucleated Red Blood Cells % 0.0 Neutrophils # (Manual) 5.2 Lymphocytes # 0.8 Monocytes # 0.7 Eosinophils # 0.1 Basophils # 0.0 Nucleated Red Blood Cells # 0.0 Erythrocyte Sedimentation Rate 77 H Sodium Level 134 L Potassium Level 3.4 L Chloride Level 104 Carbon Dioxide Level 23 Anion Gap 10 Blood Urea Nitrogen 10 Creatinine 0.86 Glucose Level 103 Calcium Level 7.6 L Total Bilirubin 0.8 Direct Bilirubin 0.00 Indirect Bilirubin 0.8 Aspartate Amino Transf (AST/SGOT) 35 Alanine Aminotransferase (ALT/SGPT) 38 Alkaline Phosphatase 67 Total Protein 5.4 L Albumin 2.5 L Globulin 2.90 Albumin/Globulin Ratio 0.86 Medications Medications Current Medications Morphine Sulfate (morphine) 3 mg Q4H PRN IV PAIN Last administered on 10/26/16 11:03; Admin Dose 3 MG; Start 10/22/16 at 05:00 Ondansetron HCl (Zofran Inj) 4 mg Q6H PRN IV NAUSEA AND/OR VOMITING; Start at 05:00 Acetaminophen (Tylenol Tab) 650 mg Q6H PRN PO PAIN AND OR ELEVATED TEMP Last administered on 10/26/16 02:49; Admin Dose 650 MG; Start 10/22/16 at 05:00 Amlodipine Besylate (Norvasc) 5 mg DAILY PO Last administered on 10/26/16 08:56 ; Admin Dose 5 MG; Start 10/22/16 at 09:00 Hydralazine HCl 10 mg 10 mg Q4H PRN IV SBP > 160 Last administered on 06:11; Admin Dose 10 MG; Start 10/22/16 at 06:00 Sodium Chloride (NS) 1,000 ml @ 50 mls/hr Q20H IV Last administered on 04:47; Admin Dose 50 MLS/HR; Start 10/23/16 at 12:00 Enoxaparin Sodium (Lovenox) 40 mg QHS SC ; Start 10/24/16 at 21:00; Status Future Hold Morphine Sulfate (morphine) 2 mg Q2H PRN IV pain Last administered on 10/26/16 03:19; Admin Dose 2 MG; Start 10/24/16 at 19:00 Acetaminophen/ Hydrocodone Bitart 1 tab 1 tab Q3H PRN PO PAIN Last administered on 10/25/16 15:44; Admin Dose 1 TAB; Start 10/24/16 at 19:00 Ferric Sodium Gluconate Complex/ Sodium Chloride (Ferrlecit/NS) 110 ml @ 110 mls/hr Q24H IVPB Last administered on 10/26/16 11:54; Admin Dose 110 MLS/HR; Start 10/25/16 at 11:00; Stop 10/29/16 at 11:59 Doxazosin Mesylate (Cardura) 2 mg HS PO Last administered on 10/25/16 21:16; Admin Dose 2 MG; Start 10/25/16 at 21:00 YURY BENZ MD Oct 26, 2016 12:03
[2016-10-26] MEDS: HYDROCODONE/APAP (5/325) TAB PO PRN (13:25)
[2016-10-26 14:03] VITALS: BP 137/63; RESP 18
[2016-10-26 19:24] VITALS: BP 137/63; RESP 20
[2016-10-26] MEDS: DOXAZOSIN 2 MG TAB PO SCH (20:40)
[2016-10-26] MEDS: POLYETHYLENE GLYCOL 17 GM PACKET PO SCH (21:53)
[2016-10-26] MEDS: DOCUSATE SODIUM 100 MG CAP PO SCH (21:53)
[2016-10-27] MEDS: morphine 4 MG/ML VIAL IV PRN (00:25)
[2016-10-27 01:17] VITALS: BP 135/64; RESP 20
[2016-10-27] MEDS: HYDROCODONE/APAP (5/325) TAB PO PRN ×2 (01:41→12:02)
[2016-10-27 02:55] VITALS: BP 137/65; RESP 18
--- NOTE | 2016-10-27 03:24 | PN ---
DATE: 10/26/2016 SUBJECTIVE DATA: Second postoperative day. OBJECTIVE DATA: VITAL SIGNS: Afebrile with stable vital signs. LABORATORY AND DIAGNOSTIC DATA: Postoperative hemoglobin is 8.2 and hematocrit 24.8 now. Postoperative x-ray shows acceptable alignment and proper position of the fixation device, considering the time of the fracture. ASSESSMENT AND PLAN: Because of the nature of the fracture, absolutely no weightbearing until otherwise ordered by Orthopedic Surgery is recommended. Dictated By: In Sera García MD /[email or web address]/chong /Document#: [id number]
[2016-10-27 05:32] LABS: BASOPHILS % 0.6 % (0.0-2.0); EOSINOPHILS # 0.2 10^3/ul (0.0-0.5); EOSINOPHILS % 3.3 % (0.0-7.0); HEMATOCRIT 24.3 % (42.0-52.0); HEMOGLOBIN 8.1 g/dl (14.0-18.0); LYMPHOCYTES # 1.2 10^3/ul (0.8-2.9); LYMPHOCYTES % 18.7 % (15.0-51.0); MEAN CORPUSCULAR HEMOGLOBIN 30.7 pg (29.0-33.0); MEAN CORPUSCULAR HGB CONC 33.3 g/dl (32.0-37.0); MEAN PLATELET VOLUME 9.8 fl (7.4-10.4); MONOCYTE # 0.7 10^3/ul (0.3-0.9); NEUTROPHILS % 64.7 % (39.0-77.0); PLATELET COUNT 379 10^3/UL (140-415); RED BLOOD COUNT 2.64 10^6/ul (4.70-6.10); RED CELL DISTRIBUTION WIDTH 14.1 % (11.5-14.5); WHITE BLOOD COUNT 6.6 10^3/ul (4.8-10.8)
[2016-10-27 05:50] LABS: CALCIUM 7.9 mg/dl (8.4-10.2); CREATININE 0.84 mg/dl (0.61-1.24); POTASSIUM 3.9 mmol/L (3.5-5.1)
[2016-10-27] MEDS: AMLODIPINE 5 MG TAB PO SCH (09:02)
[2016-10-27] MEDS: DOCUSATE SODIUM 100 MG CAP PO SCH ×2 (09:02→20:46)
[2016-10-27] MEDS: POLYETHYLENE GLYCOL 17 GM PACKET PO SCH (09:03)
[2016-10-27 09:07] VITALS: BP 131/61; RESP 19
--- NOTE | 2016-10-27 11:32 | PN ---
Date/Time of Note Date/Time of Note DATE: 10/27/16 TIME: 11:22 Assessment/Plan VTE Prophylaxis VTE Prophylaxis Intervention: other (Aspirin 325) Lines/Catheters [facility]): Peripheral IV Urinary Cath still in place: No Assessment/Plan Chief Complaint/Hosp Course 1. Left hip fracture, s/p ORIF 10/24/2016 -Postoperative weightbearing per surgery. -Patient has been refusing Lovenox. Due to high risk factors, we are going to start patient on aspirin 325 mg 6 weeks. 2. Acute iron deficient anemia on tonic anemia. -On iron replacement. Monitor H&H closely. DVT prophylaxis: Aspirin and SCDs. Patient refused Lovenox. Plan: Nature of fracture, language barrier and pain tolerance is a major problem in rehab potential on this gentleman. Follow-up with orthopedic and PT recommendations regarding weightbearing status. Patient would require complex multidisciplinary approach based on his current rehab potential. Case discussed with Problems: Subjective 24 Hr Interval Summary Free Text/Dictation Having physical therapy at bedside. Denies any shortness of breath, chest pain or other constitutional symptoms. Exam/Review of Systems Vital Signs Vitals Vital Signs Date Time Temp Pulse Resp B/P Pulse Ox O2 Delivery O2 Flow Rate FiO2 10/27/16 09:07 98.2 97 19 131/61 96 10/25/16 20:30 Nasal Cannula 3.0 Intake and Output 10/26/16 10/26/16 10/27/16 15:00 23:00 07:00 Intake Total 110 ml 1460 ml 800 ml Output Total 600 ml 1100 ml Balance 110 ml 860 ml -300 ml Exam General: Well developed, male, not in any acute distress . HEENT: Normocephalic, Atraumatic, No laceration or hematoma; Eyes: PEERL, Conjunctiva clear, Anicteric sclera Neck: Supple without any lymphadenopathy, nontender, no JVD, no carotid bruits, trachea midline, no thyromegaly Cardiac: S1, S2 auscultated, regular rhythm and rate, no mumurs or gallop Pulmonary: Normal respiratory effort. Chest clear to auscultation bilaterally, no adventitious breath sounds GI: Abdomen normal to inspection. Soft, non- distended, no masses, no rebound tenderness or guarding. Bowel sounds active on all four quadrants Genitourinary: Deferred Extremities: Left hip surgical site intact. No hematoma. ROM decreased 2/2 pain. No cyanosis, clubbing, or edema. Pulses [2+] bilaterally. No focal weakness appreciated. Neurologic: Alert to person, place, time, and situation. Affect appropriate, intact sensation. Skin: Clean,dry, and intact. No ecchymosis, no rashes, or lesions Results Result Diagram: 10/27/16 0430 10/27/16 0440 Results 24 hrs Laboratory Tests Test 10/27/16 04:30 10/27/16 04:40 White Blood Count 6.6 Red Blood Count 2.64 L Hemoglobin 8.1 L Hematocrit 24.3 L Mean Corpuscular Volume 92.0 Mean Corpuscular Hemoglobin 30.7 Mean Corpuscular Hemoglobin Concent 33.3 Red Cell Distribution Width 14.1 Platelet Count 379 # Mean Platelet Volume 9.8 Neutrophils % 64.7 Lymphocytes % 18.7 Monocytes % 11.0 Eosinophils % 3.3 Basophils % 0.6 Nucleated Red Blood Cells % 0.0 Neutrophils # (Manual) 4.3 Lymphocytes # 1.2 Monocytes # 0.7 Eosinophils # 0.2 Basophils # 0.0 Nucleated Red Blood Cells # 0.0 Sodium Level 135 Potassium Level 3.9 Chloride Level 106 Carbon Dioxide Level 24 Anion Gap 9 Blood Urea Nitrogen 10 Creatinine 0.84 Glucose Level 109 Calcium Level 7.9 L Medications Medications Current Medications Morphine Sulfate (morphine) 3 mg Q4H PRN IV PAIN Last administered on 10/27/16 00:25; Admin Dose 3 MG; Start 10/22/16 at 05:00 Ondansetron HCl (Zofran Inj) 4 mg Q6H PRN IV NAUSEA AND/OR VOMITING; Start at 05:00 Acetaminophen (Tylenol Tab) 650 mg Q6H PRN PO PAIN AND OR ELEVATED TEMP Last administered on 10/26/16 02:49; Admin Dose 650 MG; Start 10/22/16 at 05:00 Amlodipine Besylate (Norvasc) 5 mg DAILY PO Last administered on 10/27/16 09:02 ; Admin Dose 5 MG; Start 10/22/16 at 09:00 Hydralazine HCl 10 mg 10 mg Q4H PRN IV SBP > 160 Last administered on 06:11; Admin Dose 10 MG; Start 10/22/16 at 06:00 Sodium Chloride (NS) 1,000 ml @ 50 mls/hr Q20H IV Last administered on 20:40; Admin Dose 50 MLS/HR; Start 10/23/16 at 12:00 Enoxaparin Sodium (Lovenox) 40 mg QHS SC ; Start 10/24/16 at 21:00; Status Future Hold Morphine Sulfate (morphine) 2 mg Q2H PRN IV pain Last administered on 10/26/16 03:19; Admin Dose 2 MG; Start 10/24/16 at 19:00 Acetaminophen/ Hydrocodone Bitart 1 tab 1 tab Q3H PRN PO PAIN Last administered on 10/27/16 01:41; Admin Dose 1 TAB; Start 10/24/16 at 19:00 Ferric Sodium Gluconate Complex/ Sodium Chloride (Ferrlecit/NS) 110 ml @ 110 mls/hr Q24H IVPB Last administered on 10/26/16 11:54; Admin Dose 110 MLS/HR; Start 10/25/16 at 11:00; Stop 10/29/16 at 11:59 Doxazosin Mesylate (Cardura) 2 mg HS PO Last administered on 10/26/16 20:40; Admin Dose 2 MG; Start 10/25/16 at 21:00 Docusate Sodium (Colace) 100 mg BID PO Last administered on 10/27/16 09:02; Admin Dose 100 MG; Start 10/26/16 at 22:00 Polyethylene Glycol (Miralax) 17 gm DAILY PO Last administered on 10/27/16 09: 03; Admin Dose 17 GM; Start 10/26/16 at 22:00 ROSANNA LOJA NP Oct 27, 2016 11:32
[2016-10-27] MEDS: SOD FERRIC GLUC COMPLX 125 MG in SOD CHLORIDE 0.9% 100 ML IVPB SCH (12:02)
[2016-10-27] MEDS: ASPIRIN 325 MG TAB PO SCH (12:05)
[2016-10-27] MEDS: SOD CHLORIDE 0.9% 1,000 ML IV SCH (17:40)
[2016-10-27 19:36] VITALS: BP 139/65; RESP 18
[2016-10-27] MEDS: DOXAZOSIN 2 MG TAB PO SCH (20:46)
[2016-10-28 02:10] VITALS: BP 145/67; RESP 18
[2016-10-28] MEDS: HYDROCODONE/APAP (5/325) TAB PO PRN ×3 (03:00→21:04)
[2016-10-28 05:34] LABS: BASOPHILS % 0.3 % (0.0-2.0); EOSINOPHILS # 0.3 10^3/ul (0.0-0.5); EOSINOPHILS % 4.7 % (0.0-7.0); HEMATOCRIT 24.3 % (42.0-52.0); HEMOGLOBIN 7.9 g/dl (14.0-18.0); MEAN CORPUSCULAR HEMOGLOBIN 29.4 pg (29.0-33.0); MEAN CORPUSCULAR HGB CONC 32.5 g/dl (32.0-37.0); MEAN CORPUSCULAR VOLUME 90.3 fl (82.0-101.0); MONOCYTE # 0.6 10^3/ul (0.3-0.9); MONOCYTES % 9.3 % (0.0-11.0); NEUTROPHILS % 68.9 % (39.0-77.0); PLATELET COUNT 448 10^3/UL (140-415); RED BLOOD COUNT 2.69 10^6/ul (4.70-6.10); RED CELL DISTRIBUTION WIDTH 14.5 % (11.5-14.5); WHITE BLOOD COUNT 6.7 10^3/ul (4.8-10.8)
[2016-10-28 07:30] VITALS: BP 139/63; RESP 18
[2016-10-28] MEDS: ASPIRIN 325 MG TAB PO SCH (09:15)
[2016-10-28] MEDS: DOCUSATE SODIUM 100 MG CAP PO SCH ×2 (09:15→20:59)
[2016-10-28] MEDS: POLYETHYLENE GLYCOL 17 GM PACKET PO SCH (09:16)
[2016-10-28] MEDS: AMLODIPINE 5 MG TAB PO SCH (09:16)
--- NOTE | 2016-10-28 10:27 | PN ---
Date/Time of Note Date/Time of Note DATE: 10/28/16 TIME: 10:22 Assessment/Plan VTE Prophylaxis VTE Prophylaxis Intervention: other (ASA 325) Lines/Catheters [facility] ([facility] Peripheral IV Urinary Cath still in place: No Assessment/Plan Chief Complaint/Hosp Course 1. Left hip fracture, s/p ORIF 10/24/2016 -Postoperative weightbearing per surgery. 2. Acute iron deficient anemia on chronic anemia. HH dropped to 7.9,likely post operative. -On iron replacement. Monitor H&H closely. DVT prophylaxis: Aspirin and SCDs. Patient refused Lovenox. Plan: Nature of fracture, language barrier and pain tolerance is a major problem in rehab potential on this gentleman. Follow-up with orthopedic and PT recommendations regarding weightbearing status. Patient would require complex multidisciplinary approach based on his current rehab potential. Case discussed with Problems: Subjective 24 Hr Interval Summary Free Text/Dictation No acute episodes. Ongoing PT eval and treatment Exam/Review of Systems Vital Signs Vitals Vital Signs Date Time Temp Pulse Resp B/P Pulse Ox O2 Delivery O2 Flow Rate FiO2 10/28/16 02:10 98.0 88 18 145/67 96 10/25/16 20:30 Nasal Cannula 3.0 Intake and Output 10/27/16 10/27/16 10/28/16 15:00 23:00 07:00 Intake Total 110 ml 1820 ml 1200 ml Output Total 1000 ml 1200 ml Balance 110 ml 820 ml 0 ml Exam General: Well developed, male, not in any acute distress . HEENT: Normocephalic, Atraumatic, No laceration or hematoma; Eyes: PEERL, Conjunctiva clear, Anicteric sclera Neck: Supple without any lymphadenopathy, nontender, no JVD, no carotid bruits, trachea midline, no thyromegaly Cardiac: S1, S2 auscultated, regular rhythm and rate, no mumurs or gallop Pulmonary: Normal respiratory effort. Chest clear to auscultation bilaterally, no adventitious breath sounds GI: Abdomen normal to inspection. Soft, non- distended, no masses, no rebound tenderness or guarding. Bowel sounds active on all four quadrants Genitourinary: Deferred Extremities: Left hip surgical site intact. No hematoma. ROM decreased 2/2 pain. No cyanosis, clubbing, or edema. Pulses [2+] bilaterally. No focal weakness appreciated. Neurologic: Alert to person, place, time, and situation. Affect appropriate, intact sensation. Skin: Clean,dry, and intact. No ecchymosis, no rashes, or lesions Results Result Diagram: 10/28/16 0441 10/27/16 0440 Results 24 hrs Laboratory Tests Test 10/28/16 04:41 White Blood Count 6.7 Red Blood Count 2.69 L Hemoglobin 7.9 L Hematocrit 24.3 L Mean Corpuscular Volume 90.3 Mean Corpuscular Hemoglobin 29.4 Mean Corpuscular Hemoglobin Concent 32.5 Red Cell Distribution Width 14.5 Platelet Count 448 H Mean Platelet Volume 10.0 Neutrophils % 68.9 Lymphocytes % 15.0 Monocytes % 9.3 Eosinophils % 4.7 Basophils % 0.3 Nucleated Red Blood Cells % 0.0 Neutrophils # (Manual) 4.6 Lymphocytes # 1.0 Monocytes # 0.6 Eosinophils # 0.3 Basophils # 0.0 Nucleated Red Blood Cells # 0.0 Medications Medications Current Medications Morphine Sulfate (morphine) 3 mg Q4H PRN IV PAIN Last administered on 10/27/16 00:25; Admin Dose 3 MG; Start 10/22/16 at 05:00 Ondansetron HCl (Zofran Inj) 4 mg Q6H PRN IV NAUSEA AND/OR VOMITING; Start at 05:00 Acetaminophen (Tylenol Tab) 650 mg Q6H PRN PO PAIN AND OR ELEVATED TEMP Last administered on 10/26/16 02:49; Admin Dose 650 MG; Start 10/22/16 at 05:00 Amlodipine Besylate (Norvasc) 5 mg DAILY PO Last administered on 10/28/16 09:16 ; Admin Dose 5 MG; Start 10/22/16 at 09:00 Hydralazine HCl 10 mg 10 mg Q4H PRN IV SBP > 160 Last administered on 06:11; Admin Dose 10 MG; Start 10/22/16 at 06:00 Sodium Chloride (NS) 1,000 ml @ 50 mls/hr Q20H IV Last administered on 17:40; Admin Dose 50 MLS/HR; Start 10/23/16 at 12:00 Morphine Sulfate (morphine) 2 mg Q2H PRN IV pain Last administered on 10/26/16 03:19; Admin Dose 2 MG; Start 10/24/16 at 19:00 Acetaminophen/ Hydrocodone Bitart 1 tab 1 tab Q3H PRN PO PAIN Last administered on 10/28/16 03:00; Admin Dose 1 TAB; Start 10/24/16 at 19:00 Ferric Sodium Gluconate Complex/ Sodium Chloride (Ferrlecit/NS) 110 ml @ 110 mls/hr Q24H IVPB Last administered on 10/27/16 12:02; Admin Dose 110 MLS/HR; Start 10/25/16 at 11:00; Stop 10/29/16 at 11:59 Doxazosin Mesylate (Cardura) 2 mg HS PO Last administered on 10/27/16 20:46; Admin Dose 2 MG; Start 10/25/16 at 21:00 Docusate Sodium (Colace) 100 mg BID PO Last administered on 10/28/16 09:15; Admin Dose 100 MG; Start 10/26/16 at 22:00 Polyethylene Glycol (Miralax) 17 gm DAILY PO Last administered on 10/28/16 09: 16; Admin Dose 17 GM; Start 10/26/16 at 22:00 Aspirin (Aspirin) 325 mg DAILY PO Last administered on 10/28/16 09:15; Admin Dose 325 MG; Start 10/27/16 at 11:30; Stop 12/08/16 at 11:29 ROSANNA LOJA NP Oct 28, 2016 10:27
[2016-10-28] MEDS: SOD FERRIC GLUC COMPLX 125 MG in SOD CHLORIDE 0.9% 100 ML IVPB SCH (10:48)
[2016-10-28] MEDS: SOD CHLORIDE 0.9% 1,000 ML IV SCH (15:55)
[2016-10-28 20:00] VITALS: BP 138/64; RESP 18
[2016-10-28] MEDS: DOXAZOSIN 2 MG TAB PO SCH (20:59)
[2016-10-29 02:00] VITALS: BP 140/69; RESP 18
[2016-10-29] MEDS: HYDROCODONE/APAP (5/325) TAB PO PRN ×3 (04:22→14:52)
[2016-10-29 05:48] LABS: BASOPHILS % 0.3 % (0.0-2.0); EOSINOPHILS # 0.4 10^3/ul (0.0-0.5); EOSINOPHILS % 5.6 % (0.0-7.0); HEMATOCRIT 25.1 % (42.0-52.0); HEMOGLOBIN 8.4 g/dl (14.0-18.0); LYMPHOCYTES # 1.3 10^3/ul (0.8-2.9); LYMPHOCYTES % 17.8 % (15.0-51.0); MEAN CORPUSCULAR HEMOGLOBIN 30.5 pg (29.0-33.0); MEAN CORPUSCULAR HGB CONC 33.5 g/dl (32.0-37.0); MEAN CORPUSCULAR VOLUME 91.3 fl (82.0-101.0); MONOCYTE # 0.6 10^3/ul (0.3-0.9); MONOCYTES % 8.8 % (0.0-11.0); NUCLEATED RED BLOOD CELLS% 0.4 /100WBC (0.0-0.0); PLATELET COUNT 573 10^3/UL (140-415); RED BLOOD COUNT 2.75 10^6/ul (4.70-6.10); WHITE BLOOD COUNT 7.1 10^3/ul (4.8-10.8)
[2016-10-29 08:03] VITALS: BP 135/67; RESP 18
[2016-10-29] MEDS: ASPIRIN 325 MG TAB PO SCH (08:06)
[2016-10-29] MEDS: POLYETHYLENE GLYCOL 17 GM PACKET PO SCH (08:06)
[2016-10-29] MEDS: AMLODIPINE 5 MG TAB PO SCH (08:06)
[2016-10-29] MEDS: DOCUSATE SODIUM 100 MG CAP PO SCH ×2 (08:06→20:36)
--- NOTE | 2016-10-29 10:15 | PN ---
Date/Time of Note Date/Time of Note DATE: 10/29/16 TIME: 10:07 Assessment/Plan VTE Prophylaxis VTE Prophylaxis Intervention: SCD's, other (aspirin 325) Lines/Catheters IV [facility] Type (from [facility]): Peripheral IV Urinary Cath still in place: No Assessment/Plan Chief Complaint/Hosp Course 1. Left hip fracture, s/p ORIF 10/24/2016 -Postoperative weightbearing per surgery. 2. Acute iron deficient anemia on chronic anemia. HH stable -On iron replacement. Monitor H&H closely. 3. urine CS with Mixed organisms- Possible contamination -Repeat CS. DVT prophylaxis: Aspirin and SCDs. Patient refused Lovenox. Plan: Nature of fracture, language barrier and low pain tolerance are major hindrances in rehab potential on this gentleman. ARU has already evaluated the patient and accepted him although he would have benefited from a slow complex interdisciplinary rehab in an [facility]. DISP: Pending insurance authorization to ARU. Case discussed with Dr. Izaguirre Problems: Subjective 24 Hr Interval Summary Free Text/Dictation Participates in PT with fair tolerance. ARU has evaluated the patient already and accepted. Exam/Review of Systems Vital Signs Vitals Vital Signs Date Time Temp Pulse Resp B/P Pulse Ox O2 Delivery O2 Flow Rate FiO2 10/29/16 08:03 97.7 77 18 135/67 97 10/25/16 20:30 Nasal Cannula 3.0 Intake and Output 10/28/16 10/28/16 10/29/16 14:59 22:59 06:59 Intake Total 110 ml 1550 ml 480 ml Output Total 1000 ml 1200 ml Balance 110 ml 550 ml -720 ml Exam General: Well developed, [place] male, not in any acute distress . HEENT: Normocephalic, Atraumatic, No laceration or hematoma; Eyes: PEERL, Conjunctiva clear, Anicteric sclera Neck: Supple without any lymphadenopathy, nontender, no JVD, no carotid bruits, trachea midline, no thyromegaly Cardiac: S1, S2 auscultated, regular rhythm and rate, no mumurs or gallop Pulmonary: Normal respiratory effort. Chest clear to auscultation bilaterally, no adventitious breath sounds GI: Abdomen normal to inspection. Soft, non- distended, no masses, no rebound tenderness or guarding. Bowel sounds active on all four quadrants Genitourinary: Deferred Extremities: Left hip surgical site intact. No hematoma. ROM decreased 2/2 pain. No cyanosis, clubbing, or edema. Pulses [2+] bilaterally. No focal weakness appreciated. Neurologic: Alert to person, place, time, and situation. Affect appropriate, intact sensation. Skin: Clean,dry, and intact. No ecchymosis, no rashes, or lesions Results Result Diagram: 10/29/16 0506 10/27/16 0440 Results 24 hrs Laboratory Tests Test 10/29/16 05:06 White Blood Count 7.1 Red Blood Count 2.75 L Hemoglobin 8.4 L Hematocrit 25.1 L Mean Corpuscular Volume 91.3 Mean Corpuscular Hemoglobin 30.5 Mean Corpuscular Hemoglobin Concent 33.5 Red Cell Distribution Width 15.0 H Platelet Count 573 #H Mean Platelet Volume 10.0 Neutrophils % 64.0 Lymphocytes % 17.8 Monocytes % 8.8 Eosinophils % 5.6 Basophils % 0.3 Nucleated Red Blood Cells % 0.4 H Neutrophils # (Manual) 4.5 Lymphocytes # 1.3 Monocytes # 0.6 Eosinophils # 0.4 Basophils # 0.0 Nucleated Red Blood Cells # 0.0 Medications Medications Current Medications Morphine Sulfate (morphine) 3 mg Q4H PRN IV PAIN Last administered on 10/27/16 00:25; Admin Dose 3 MG; Start 10/22/16 at 05:00 Ondansetron HCl (Zofran Inj) 4 mg Q6H PRN IV NAUSEA AND/OR VOMITING; Start at 05:00 Acetaminophen (Tylenol Tab) 650 mg Q6H PRN PO PAIN AND OR ELEVATED TEMP Last administered on 10/26/16 02:49; Admin Dose 650 MG; Start 10/22/16 at 05:00 Amlodipine Besylate (Norvasc) 5 mg DAILY PO Last administered on 10/29/16 08:06 ; Admin Dose 5 MG; Start 10/22/16 at 09:00 Hydralazine HCl 10 mg 10 mg Q4H PRN IV SBP > 160 Last administered on 06:11; Admin Dose 10 MG; Start 10/22/16 at 06:00 Sodium Chloride (NS) 1,000 ml @ 50 mls/hr Q20H IV Last administered on 15:55; Admin Dose 50 MLS/HR; Start 10/23/16 at 12:00 Morphine Sulfate (morphine) 2 mg Q2H PRN IV pain Last administered on 10/26/16 03:19; Admin Dose 2 MG; Start 10/24/16 at 19:00 Acetaminophen/ Hydrocodone Bitart 1 tab 1 tab Q3H PRN PO PAIN Last administered on 10/29/16 04:22; Admin Dose 1 TAB; Start 10/24/16 at 19:00 Ferric Sodium Gluconate Complex/ Sodium Chloride (Ferrlecit/NS) 110 ml @ 110 mls/hr Q24H IVPB Last administered on 10/28/16 10:48; Admin Dose 110 MLS/HR; Start 10/25/16 at 11:00; Stop 10/29/16 at 11:59 Doxazosin Mesylate (Cardura) 2 mg HS PO Last administered on 10/28/16 20:59; Admin Dose 2 MG; Start 10/25/16 at 21:00 Docusate Sodium (Colace) 100 mg BID PO Last administered on 10/29/16 08:06; Admin Dose 100 MG; Start 10/26/16 at 22:00 Polyethylene Glycol (Miralax) 17 gm DAILY PO Last administered on 10/29/16 08: 06; Admin Dose 17 GM; Start 10/26/16 at 22:00 Aspirin (Aspirin) 325 mg DAILY PO Last administered on 10/29/16 08:06; Admin Dose 325 MG; Start 10/27/16 at 11:30; Stop 12/08/16 at 11:29 ROSANNA LOJA NP Oct 29, 2016 10:15
[2016-10-29] MEDS: SOD FERRIC GLUC COMPLX 125 MG in SOD CHLORIDE 0.9% 100 ML IVPB SCH (10:26)
[2016-10-29] MEDS: SOD CHLORIDE 0.9% 1,000 ML IV SCH (12:46)
[2016-10-29 14:00] VITALS: BP 129/58; RESP 18
[2016-10-29 19:37] VITALS: BP 140/67; RESP 20
[2016-10-29] MEDS: DOXAZOSIN 2 MG TAB PO SCH (20:37)
[2016-10-30 02:00] VITALS: BP 168/75; RESP 20
[2016-10-30] MEDS: HYDROCODONE/APAP (5/325) TAB PO PRN ×4 (02:03→21:18)
[2016-10-30] MEDS: SOD CHLORIDE 0.9% 1,000 ML IV SCH ×2 (04:00→05:51)
[2016-10-30 05:14] LABS: BASOPHILS % 0.5 % (0.0-2.0); EOSINOPHILS # 0.3 10^3/ul (0.0-0.5); EOSINOPHILS % 3.5 % (0.0-7.0); HEMATOCRIT 27.9 % (42.0-52.0); LYMPHOCYTES # 1.4 10^3/ul (0.8-2.9); LYMPHOCYTES % 16.5 % (15.0-51.0); MEAN CORPUSCULAR HEMOGLOBIN 29.4 pg (29.0-33.0); MEAN CORPUSCULAR HGB CONC 32.3 g/dl (32.0-37.0); MEAN CORPUSCULAR VOLUME 91.2 fl (82.0-101.0); MEAN PLATELET VOLUME 9.6 fl (7.4-10.4); MONOCYTE # 0.6 10^3/ul (0.3-0.9); MONOCYTES % 7.1 % (0.0-11.0); NEUTROPHILS % 68.7 % (39.0-77.0); NUCLEATED RED BLOOD CELLS% 0.4 /100WBC (0.0-0.0); PLATELET COUNT 699 10^3/UL (140-415); RED BLOOD COUNT 3.06 10^6/ul (4.70-6.10); RED CELL DISTRIBUTION WIDTH 15.8 % (11.5-14.5); WHITE BLOOD COUNT 8.2 10^3/ul (4.8-10.8)
[2016-10-30 07:40] VITALS: BP 131/61; RESP 18
[2016-10-30] MEDS: ASPIRIN 325 MG TAB PO SCH (08:53)
[2016-10-30] MEDS: POLYETHYLENE GLYCOL 17 GM PACKET PO SCH (08:53)
[2016-10-30] MEDS: DOCUSATE SODIUM 100 MG CAP PO SCH ×2 (08:54→21:14)
[2016-10-30] MEDS: AMLODIPINE 5 MG TAB PO SCH (08:54)
--- NOTE | 2016-10-30 09:22 | PN ---
Date/Time of Note Date/Time of Note DATE: 10/30/16 TIME: 09:16 Assessment/Plan VTE Prophylaxis VTE Prophylaxis Intervention: SCD's, other (ASPIRIN 325) Lines/Catheters IV [facility] (from [facility]): Peripheral IV Urinary Cath still in place: No Assessment/Plan Chief Complaint/Hosp Course 1. Left hip fracture, s/p ORIF 10/24/2016 -Postoperative weightbearing per surgery. 2. Acute iron deficient anemia on chronic anemia. HH stable -On iron replacement. Monitor H&H closely. 3. urine CS with Mixed organisms- Possible contamination -F/u Repeat CS. DVT prophylaxis: Aspirin and SCDs. Patient refused Lovenox. DISP: Accepted to ARU. Pending insurance authorization Case discussed with Dr. Izaguirre Problems: Subjective 24 Hr Interval Summary Free Text/Dictation overall doing well. Participates in PT. Exam/Review of Systems Vital Signs Vitals Vital Signs Date Time Temp Pulse Resp B/P Pulse Ox O2 Delivery O2 Flow Rate FiO2 10/30/16 07:40 97.4 71 18 131/61 97 Intake and Output 10/29/16 10/29/16 10/30/16 15:00 23:00 07:00 Intake Total 1060 ml 1100 ml 1360 ml Output Total 1100 ml 1250 ml Balance 1060 ml 0 ml 110 ml Exam General: Well developed, male, not in any acute distress . HEENT: Normocephalic, Atraumatic, No laceration or hematoma; Eyes: PEERL, Conjunctiva clear, Anicteric sclera Neck: Supple without any lymphadenopathy, nontender, no JVD, no carotid bruits, trachea midline, no thyromegaly Cardiac: S1, S2 auscultated, regular rhythm and rate, no mumurs or gallop Pulmonary: Normal respiratory effort. Chest clear to auscultation bilaterally, no adventitious breath sounds GI: Abdomen normal to inspection. Soft, non- distended, no masses, no rebound tenderness or guarding. Bowel sounds active on all four quadrants Genitourinary: Deferred Extremities: Left hip surgical site intact. No hematoma. ROM decreased 2/2 pain. No cyanosis, clubbing, or edema. Pulses [2+] bilaterally. No focal weakness appreciated. Neurologic: Alert to person, place, time, and situation. Affect appropriate, intact sensation. Skin: Clean,dry, and intact. No ecchymosis, no rashes, or lesions Results Result Diagram: 10/30/16 0451 10/27/16 0440 Results 24 hrs Laboratory Tests Test 10/30/16 04:51 White Blood Count 8.2 Red Blood Count 3.06 L Hemoglobin 9.0 L Hematocrit 27.9 L Mean Corpuscular Volume 91.2 Mean Corpuscular Hemoglobin 29.4 Mean Corpuscular Hemoglobin Concent 32.3 Red Cell Distribution Width 15.8 H Platelet Count 699 #H Mean Platelet Volume 9.6 Neutrophils % 68.7 Lymphocytes % 16.5 Monocytes % 7.1 Eosinophils % 3.5 Basophils % 0.5 Nucleated Red Blood Cells % 0.4 H Neutrophils # (Manual) 5.6 Lymphocytes # 1.4 Monocytes # 0.6 Eosinophils # 0.3 Basophils # 0.0 Nucleated Red Blood Cells # 0.0 Medications Medications Current Medications Morphine Sulfate (morphine) 3 mg Q4H PRN IV PAIN Last administered on 10/27/16 00:25; Admin Dose 3 MG; Start 10/22/16 at 05:00 Ondansetron HCl (Zofran Inj) 4 mg Q6H PRN IV NAUSEA AND/OR VOMITING; Start at 05:00 Acetaminophen (Tylenol Tab) 650 mg Q6H PRN PO PAIN AND OR ELEVATED TEMP Last administered on 10/26/16 02:49; Admin Dose 650 MG; Start 10/22/16 at 05:00 Amlodipine Besylate (Norvasc) 5 mg DAILY PO Last administered on 10/30/16 08:54 ; Admin Dose 5 MG; Start 10/22/16 at 09:00 Hydralazine HCl 10 mg 10 mg Q4H PRN IV SBP > 160 Last administered on 06:11; Admin Dose 10 MG; Start 10/22/16 at 06:00 Sodium Chloride (NS) 1,000 ml @ 50 mls/hr Q20H IV Last administered on 05:51; Admin Dose 50 MLS/HR; Start 10/23/16 at 12:00 Morphine Sulfate (morphine) 2 mg Q2H PRN IV pain Last administered on 10/26/16 03:19; Admin Dose 2 MG; Start 10/24/16 at 19:00 Acetaminophen/ Hydrocodone Bitart ([place] (5/325)) 1 tab Q3H PRN PO PAIN Last administered on 10/30/16 08:54; Admin Dose 1 TAB; Start 10/24/16 at 19:00 Doxazosin Mesylate (Cardura) 2 mg HS PO Last administered on 10/29/16 20:37; Admin Dose 2 MG; Start 10/25/16 at 21:00 Docusate Sodium (Colace) 100 mg BID PO Last administered on 10/30/16 08:54; Admin Dose 100 MG; Start 10/26/16 at 22:00 Polyethylene Glycol (Miralax) 17 gm DAILY PO Last administered on 10/30/16 08: 53; Admin Dose 17 GM; Start 10/26/16 at 22:00 Aspirin (Aspirin) 325 mg DAILY PO Last administered on 10/30/16 08:53; Admin Dose 325 MG; Start 10/27/16 at 11:30; Stop 12/08/16 at 11:29 ROSANNA LOJA NP Oct 30, 2016 09:22
[2016-10-30 11:51] VITALS: BP 131/64; RESP 18
[2016-10-30 20:09] VITALS: BP 150/63; RESP 20
[2016-10-30] MEDS: DOXAZOSIN 2 MG TAB PO SCH (21:14)
[2016-10-30] MEDS: morphine 2 MG INJ IV PRN (23:26)
[2016-10-31 01:22] VITALS: BP 148/62; RESP 18
[2016-10-31] MEDS: SOD CHLORIDE 0.9% 1,000 ML IV SCH (02:12)
[2016-10-31 07:54] VITALS: BP 150/73; RESP 19
--- NOTE | 2016-10-31 08:50 | PDOCDIS ---
Discharge Instructions CONDITION Patient Condition: Stable ACTIVITY: Activity Restrictions Comment: WITH PT ASSIST FOLLOW UP/APPOINTMENTS Follow-up Plan 1.Follow-up with in 2weeks [address] [place] [id number] Office ROSANNA LOJA NP Oct 31, 2016 08:50
[2016-10-31] MEDS ORDERED: DOCU-216 PO (08:53)
[2016-10-31] MEDS ORDERED: ACET325T40 PO (08:53)
[2016-10-31] MEDS ORDERED: DOXA2TAB61 PO (08:53)
[2016-10-31] MEDS ORDERED: AMLO-145 PO (08:53)
[2016-10-31] MEDS ORDERED: ASPI325T4 PO (08:53)
[2016-10-31] MEDS ORDERED: POLY17PO6 PO (08:53)
[2016-10-31] MEDS ORDERED: HYDR-3498 PO (08:53)
[2016-10-31] MEDS: AMLODIPINE 5 MG TAB PO SCH (08:56)
[2016-10-31] MEDS: DOCUSATE SODIUM 100 MG CAP PO SCH (08:56)
[2016-10-31] MEDS: ASPIRIN 325 MG TAB PO SCH (08:57)
[2016-10-31] MEDS: HYDROCODONE/APAP (5/325) TAB PO PRN ×2 (08:57→16:40)
[2016-10-31] MEDS: POLYETHYLENE GLYCOL 17 GM PACKET PO SCH (09:00)
--- NOTE | 2016-10-31 09:50 | DS ---
DATE OF ADMISSION: 10/22/2016 DATE OF DISCHARGE: 10/31/2016 CONSULTANTS: Dr. García, Orthopedics. DISCHARGE DIAGNOSES: 1. Left hip fracture, s/p ORIF 10/24/2016 2. Acute iron deficient anemia on chronic anemia. stable HOSPITAL COURSE: This is a 76-year-old male with no significant past medical history, who initially presented to [facility] because of painful left hip, secondary to mechanical fall. The patient was transferred to [facility] due to insurance purposes. In the Emergency room, x-ray of the left hip were revealed intertrochanteric and subtrochanteric fracture of the left hip. Orthopedic consultation was called and patient was admitted. The patient also had elevated blood pressure requiring antihypertensive. He was started on low-dose amlodipine and Cardura with good control of blood pressure. The patient was also given pain medication. On 10/24/2016, patient had undergone open reduction and internal fixation of the intertrochanteric fracture of the left hip by our Orthopedic team at [facility], the patient tolerated the procedure well. Postoperatively, there was no infection. Left hip incision site remained intact. Bruising also resolved which was present on admission. The patient was also noted with low iron, for which he was started on oral iron replacement. The patient did not require any blood transfusion as his hemoglobin remained stable. Patient was also noted with a normal A1c and acceptable lipid panels. During the course of hospitalization, the patient was noted with a urine culture with mixed organism which was possibly contaminated and repeat urine culture was negative. Patient did not require any antibiotics as there was no signs of infection. The patient was evaluated by Physical therapy and recommended correction facility for further rehabilitation. The patient and family were in agreement with the discharge plan. The patient's vital signs and labs remained unremarkable. His pain is controlled. DISPOSITION: Patient will be discharged to correction facility for further physical therapy. The patient was instructed to continue a regular diet. DISCHARGE MEDICATIONS: Acetaminophen (Tylenol Tab) 650 mg Q6H PRN PO PAIN AND OR ELEVATED TEMP Last administered on 10/26/16 02:49; Admin Dose 650 MG; Start 10/22/16 at 05:00 Amlodipine Besylate (Norvasc) 5 mg DAILY PO Last administered on 10/30/16 08:54 ; Admin Dose 5 MG; Start 10/22/16 at 09:00 Acetaminophen/ Hydrocodone Bitart ([place] (5/325)) 1 tab Q3H PRN PO PAIN Last administered on 10/30/16 08:54; Admin Dose 1 TAB; Start 10/24/16 at 19:00 Doxazosin Mesylate (Cardura) 2 mg HS PO Last administered on 10/29/16 20:37; Admin Dose 2 MG; Start 10/25/16 at 21:00 Docusate Sodium (Colace) 100 mg BID PO Last administered on 10/30/16 08:54; Admin Dose 100 MG; Start 10/26/16 at 22:00 Polyethylene Glycol (Miralax) 17 gm DAILY PO Last administered on 10/30/16 08: 53; Admin Dose 17 GM; Start 10/26/16 at 22:00 Aspirin (Aspirin) 325 mg DAILY PO Last administered on 10/30/16 08:53; Admin Dose 325 MG; Start 10/27/16 at 11:30; Stop 12/08/16 at 11:29 VITAL SIGNS: Temperature 98.3, pulse rate 80, respiratory rate 19, blood pressure 150/73. Oxygen saturation 97 percent on room air. LABORATORY DATA: On 10/30/2016: CBC showed WBC 8200, hemoglobin 9, hematocrit 27.9, platelets 699,000. On 10/27/2016: BMP showed sodium 135, potassium 3.9, BUN 10, creatinine 0.84, glucose 109. On 10/24/2016: Open reduction and internal fixation of intertrochanteric and subtrochanteric fracture of left hip. At this time. I would like to thank Dr. García for seeing the patient, coma providing medical recommendation and performing appropriate procedures on this patient. TIME SPENT ON DISCHARGE: Approximately, 60 minute was spent in coordinating the discharge of this patient. CONDITION ON DISCHARGE: STABLE. The patient was seen in collaboration with Dr. Izaguirre. Dictated By: Cierra Gonzalez NP /[email or web address] /Document#: [id number] JASON
[2016-10-31] MEDS: morphine 2 MG INJ IV PRN (12:20)
[2016-10-31 14:00] VITALS: BP 117/61; RESP 20
== END 2016-10-31 17:11 | DRG 482 ==
LOC: MS1 03:24
PROVIDERS: ADMIT Internal Medicine; ATTEND Internal Medicine
PROC: 0QS706Z Reposition Left Upper Femur with Intramedullary Internal Fixation Device, Open Approach (ICD-10-PCS; principal; 2016-10-24 10:00)
DX: S72.25XA Nondisplaced subtrochanteric fracture of left femur, initial encounter for closed fracture (principal); I10 Essential (primary) hypertension; S72.142A Displaced intertrochanteric fracture of left femur, initial encounter for closed fracture; D50.9 Iron deficiency anemia, unspecified; W06.XXXA Fall from bed, initial encounter; Y93.84 Activity, sleeping; N40.1 Benign prostatic hyperplasia with lower urinary tract symptoms; R33.8 Other retention of urine; E87.6 Hypokalemia
CPT/HCPCS: 71010; 72170; 73500; 73510; 80048; 80053; 80061; 81001; 81003; 82728; 83036; 83540; 83735; 84100; 84443; 85025; 85651; 86803; 87040; 87086; 87340; 93005; 97110; 97162; 97530; J0360; J0690; J2001; J2175; J2250; J2270; J2916; J3010; J7030